=== PATIENT | male | born 1945 | race Caucasian/White ===

== ENCOUNTER 2016-07-10 09:21 | Emergency (ER) | payer OTHER, BC ==
[~2016-07-10] VITALS: Ht 165.1 cm; Wt 65.7 kg
[~2016-07-10 09:21] MED LIST: ADVAIR 250/501 DISK IH; ASPIR 8181 M1 PO; ASPIRIN81 M1 PO; BENICAR HCT 201 EACH PO; CIPRO250 MG PO; CIPROFLOXACIN250 MG PO; Ceftin PO; DuoNeb IH; FLEXERIL10 MG PO; IPRATROPIUM BRO30 ML BOTH NARES; Levaquin PO; METOPROLOL SUCC25 MG PO; MUCINEX600 MG PO; NEXIUM40 MG PO; OLMESARTAN MEDO20 MG PO; PEN-VEE K,VEET500 MG PO; PREDNISONE50 MG PO; SUCRALFATE1 GM PO; VENTOLIN HFA18 GM IH; XANAX0.5 MG PO; ZANTAC300 MG PO; ZITHROMAX250 MG PO; ZOLPIDEM TARTRA10 MG PO; predniSONE PO
[2016-07-10 10:16] LABS: HEMATOCRIT 45.4 % (38.0-50.0); MCH 26.5 PG (29.0-34.0); MCHC 31.9 G/DL (30.0-36.0); MEAN PLAT.VOLUME 9.4 uM^3 (9.0-12.4); PLATELET COUNT 198 K/uL (156-360); RBC DIS.WIDTH-CV 14.5 % (11.8-14.6); RBC DIS.WIDTH-SD 43.8 % (39-53); RED BLOOD COUNT 5.47 M/uL (4.00-5.50); WHITE BLOOD COUNT 6.6 K/uL (4.1-10.2)
[2016-07-10 10:30] LABS: CHLORIDE 103 mEq/L (99-109); SODIUM 140 mEq/L (136-147)
[2016-07-10 10:32] LABS: GLUCOSE 100 mg/dL (70-99)
[2016-07-10 10:34] LABS: ANION GAP 10 MEQ/L (2-14); TOTAL BILIRUBIN 0.9 mg/dL (0.0-1.0)
[2016-07-10 10:36] LABS: ALKALINE PHOSPHATASE 48 IU/L (3-129); GFR ESTIMATE (CALCULATED) 49 mL/min/
[2016-07-10 10:37] LABS: UREA NITROGEN (BUN) 13 mg/dL (9-23)
[2016-07-10 10:40] LABS: LIPASE 36 U/L (1.0-51.0)
[2016-07-10 10:42] LABS: TROP-I INTERPRETATION NEGATIVE; TROPONIN-I < 0.01 ng/mL (0.0-0.30)
[2016-07-10] MEDS ORDERED: FLOMAX0.4 MG PO (12:59)
[2016-07-10] MEDS ORDERED: CIPRO500 MG PO (13:02)
[2016-07-10 13:20] VITALS: BP 149/71
== END 2016-07-10 13:24 | disposition home or self-care (01) ==
LOC: EME 09:21
PROVIDERS: Nurse Practitioner Family
DX: N20.0 Calculus of kidney (principal); K59.00 Constipation, unspecified; J44.9 Chronic obstructive pulmonary disease, unspecified; I10 Essential (primary) hypertension; K21.9 Gastro-esophageal reflux disease without esophagitis
CPT/HCPCS: 74000; 74176; 80053; 81003; 83690; 84484; 85027; 93005; 99281; 99284; J7030

== ENCOUNTER 2017-05-18 13:49 | Inpatient (IN) | payer OTHER, BC ==
[~2017-05-18] VITALS: Ht 170.2 cm; Wt 75.4 kg
[~2017-05-18 13:49] MED LIST changes: +CIPRO500 MG PO; +DUONEB 2.5-0.5 M3 ML AEROSOL; +FLOMAX0.4 MG PO
[2017-05-18 14:42] LABS: BASOPHIL (%) 0.9 % (0-1); BASOPHIL COUNT 0.1 K/uL (0-0.1); EOSINOPHIL (%) 5.4 % (0-5); EOSINOPHIL COUNT 0.4 K/uL (0-0.3); HEMATOCRIT 43.8 % (38.0-50.0); HEMOGLOBIN 14.4 G/DL (12.5-16.6); IMMATURE GRANULOCYTE (%) 2.4 % (0.0-0.7); LYMPHOCYTE (%) 21.6 % (15-42); LYMPHOCYTE COUNT 1.5 K/uL (1.0-2.8); MCH 28.2 PG (29.0-34.0); MCHC 32.9 G/DL (30.0-36.0); MCV 85.7 FL (86-99); MONOCYTE (%) 9.7 % (3-12); MONOCYTE COUNT 0.7 K/uL (0-0.8); NEUTROPHIL COUNT 4.2 K/uL (1.8-6.4); PLATELET COUNT 161 K/uL (156-360); RBC DIS.WIDTH-CV 13.9 % (11.8-14.6); RBC DIS.WIDTH-SD 43.4 % (39-53); RED BLOOD COUNT 5.11 M/uL (4.00-5.50)
[2017-05-18 14:52] LABS: CHLORIDE 103 mEq/L (99-109); POTASSIUM 4.3 mEq/L (3.7-5.4); SODIUM 140 mEq/L (136-147)
[2017-05-18 14:54] LABS: GLUCOSE 116 mg/dL (70-99)
[2017-05-18 14:58] LABS: CREATININE 1.4 mg/dL (0.6-1.3); GFR ESTIMATE (CALCULATED) 53 mL/min/ (58.99-99999)
[2017-05-18 14:59] LABS: PTT 31.7 SEC (25-37); UREA NITROGEN (BUN) 15 mg/dL (9-23)
[2017-05-18 15:04] LABS: TROP-I INTERPRETATION NEGATIVE; TROPONIN-I < 0.01 ng/mL (0.0-0.30)
[2017-05-18] MEDS ORDERED: AMITRIPTYLINE H25 MG PO (17:49)
[2017-05-18] MEDS ORDERED: MONTELUKAST SOD10 MG PO (17:49)
[2017-05-18 18:23] LABS: APPEARANCE CLEAR ((CLEAR)); BILIRUBIN NEGATIVE; BLOOD SMALL; COLOR STRAW ((YELLOW)); GLUCOSE (STRIP) NEGATIVE; KETONES NEGATIVE; LEUKOCYTES TRACE; NITRITE NEGATIVE; PROTEIN (STRIP) NEGATIVE; UROBILINOGEN 0.2 MG/DL (0.2-1.0)
[2017-05-18 18:51] LABS: BACTERIA NONE SEEN /HPF; EPITHELIAL CELLS RARE /HPF; MUCUS TRACE /LPF; RED BLOOD CELLS 0-5 /HPF (0-5); UCUL ADDED? NO; WHITE BLOOD CELLS 0-5 /HPF (0-5)
[2017-05-18 20:10] VITALS: BP 143/83
[2017-05-18 23:05] VITALS: BP 126/72
[2017-05-19 03:56] VITALS: BP 130/74
[2017-05-19 07:29] VITALS: BP 148/88
[2017-05-19 07:29] LABS: BASOPHIL (%) 0.3 % (0-1); EOSINOPHIL (%) 0 % (0-5); HEMOGLOBIN 13.8 G/DL (12.5-16.6); LYMPHOCYTE (%) 13.7 % (15-42); LYMPHOCYTE COUNT 1.2 K/uL (1.0-2.8); MCH 27.7 PG (29.0-34.0); MCHC 32.1 G/DL (30.0-36.0); MCV 86.2 FL (86-99); MONOCYTE (%) 1.6 % (3-12); MONOCYTE COUNT 0.1 K/uL (0-0.8); NEUTROPHIL (%) 82.4 % (45-76); NEUTROPHIL COUNT 7.3 K/uL (1.8-6.4); PLATELET COUNT 146 K/uL (156-360); RBC DIS.WIDTH-CV 13.8 % (11.8-14.6); RBC DIS.WIDTH-SD 42.9 % (39-53); RED BLOOD COUNT 4.99 M/uL (4.00-5.50); WHITE BLOOD COUNT 8.9 K/uL (4.1-10.2)
[2017-05-19 07:50] LABS: CHLORIDE 105 MEQ/L (99-109); CREATININE 1.2 MG/DL (0.6-1.3); GFR ESTIMATE (CALCULATED) > 59 mL/min/ (58.99-99999); GLUCOSE 135 mg/dL (70-99); POTASSIUM 4.4 MEQ/L (3.7-5.4); SODIUM 139 MEQ/L (136-147); UREA NITROGEN (BUN) 17 mg/dL (9-23)
[2017-05-19 11:20] VITALS: BP 137/80
[2017-05-19 16:08] VITALS: BP 114/61
[2017-05-19 19:49] VITALS: BP 152/82
[2017-05-20] VITALS (15 sets, daily range): BP systolic 115–183; BP diastolic 74–129
[2017-05-20 14:20] LABS: BASE EXCESS -1.3 mEq/L (-3 to +3); BICARBONATE 23.7 mEq/L (22-26); CARBOXY HGB 2.4 % (0-5); COMMENTS - BLOOD GASES A+C+; DEVICE NC; METHEMOGLOBIN 1.8 % (0-1.5); O2 FLOW 2 L/MIN; PCO2 40 mm Hg (35-45); PO2 76 mm Hg (80-100); SITE LR; TOTAL RESP RATE 16 resp/min; pH 7.38 (7.35-7.45)
[2017-05-20 17:34] LABS: CHLORIDE 111 MEQ/L (99-109); CREATININE 1.2 MG/DL (0.6-1.3); GFR ESTIMATE (CALCULATED) > 59 mL/min/ (58.99-99999); GLUCOSE 111 mg/dL (70-99); POTASSIUM 4.5 MEQ/L (3.7-5.4); SODIUM 142 MEQ/L (136-147)
[2017-05-20 17:38] LABS: TROP-I INTERPRETATION NEGATIVE; TROPONIN-I 0.03 ng/mL (0.0-0.30)
[2017-05-20 17:40] LABS: UREA NITROGEN (BUN) 28 mg/dL (9-23)
[2017-05-20 17:56] LABS: BASOPHIL (%) 0.2 % (0-1); EOSINOPHIL (%) 0 % (0-5); HEMATOCRIT 39.8 % (38.0-50.0); HEMOGLOBIN 12.2 G/DL (12.5-16.6); IMMATURE GRANULOCYTE (%) 2.1 % (0.0-0.7); LYMPHOCYTE (%) 10.9 % (15-42); LYMPHOCYTE COUNT 0.9 K/uL (1.0-2.8); MCH 26.9 PG (29.0-34.0); MCHC 30.7 G/DL (30.0-36.0); MCV 87.7 FL (86-99); MONOCYTE (%) 4.4 % (3-12); MONOCYTE COUNT 0.4 K/uL (0-0.8); NEUTROPHIL (%) 82.4 % (45-76); NEUTROPHIL COUNT 6.8 K/uL (1.8-6.4); RBC DIS.WIDTH-SD 45.2 % (39-53); RED BLOOD COUNT 4.54 M/uL (4.00-5.50); WHITE BLOOD COUNT 8.3 K/uL (4.1-10.2)
[2017-05-20 17:57] LABS: IMM.PLATELET FRACTION 0.2 (1-7); PLAT.SUFFICIENCY VERY DECREASED
[2017-05-20 18:01] LABS: PLATELET COUNT ND K/uL (156-360)
[2017-05-20 18:34] LABS: BICARBONATE 21.8 mEq/L (22-26); CARBOXY HGB 1.6 % (0-5); METHEMOGLOBIN 1.8 % (0-1.5); pH 7.47 (7.35-7.45)
[2017-05-20 18:35] LABS: COMMENTS - BLOOD GASES A+C+; DEVICE PB VENT; FI02 70 %; MECHANICAL RATE 20 resp/min; MODE AC; PCO2 30 mm Hg (35-45); PEEP 8 CM/H20; PO2 225 mm Hg (80-100); SITE RR; TIDAL VOLUME 450 ML; TOTAL RESP RATE 20 resp/min
[2017-05-20 18:47] LABS: PTT 27.7 SEC (25-37)
[2017-05-20 18:55] LABS: HIGH-SENS C-REACTIVE PROTEIN 0.16 MG/DL (0.02-0.20)
[2017-05-20 23:05] LABS: APPEARANCE CLEAR ((CLEAR)); BILIRUBIN NEGATIVE; BLOOD SMALL; COLOR YELLOW ((YELLOW)); GLUCOSE (STRIP) NEGATIVE; KETONES NEGATIVE; LEUKOCYTES NEGATIVE; NITRITE NEGATIVE; PROTEIN (STRIP) NEGATIVE; UROBILINOGEN 0.2 MG/DL (0.2-1.0)
[2017-05-20 23:13] LABS: BACTERIA NONE SEEN /HPF; EPITHELIAL CELLS RARE /HPF; MUCUS TRACE /LPF; RED BLOOD CELLS 0-5 /HPF (0-5); WHITE BLOOD CELLS 0-5 /HPF (0-5)
[2017-05-21] VITALS (25 sets, daily range): BP systolic 111–164; BP diastolic 67–102
[2017-05-21 14:29] LABS: BASE EXCESS -0.7 mEq/L (-3 to +3); BICARBONATE 23.2 mEq/L (22-26); CARBOXY HGB 1.7 % (0-5); METHEMOGLOBIN 1.4 % (0-1.5); pH 7.43 (7.35-7.45)
[2017-05-21 14:30] LABS: COMMENTS - BLOOD GASES A+C+; DEVICE 840 PB; FI02 30 %; MODE SPONT; PCO2 35 mm Hg (35-45); PEEP 5 CM/H20; PO2 75 mm Hg (80-100); PRES. SUPPORT 10 CM/H2O; SITE RR; TOTAL RESP RATE 22 resp/min
[2017-05-22] VITALS (12 sets, daily range): BP systolic 125–159; BP diastolic 81–92
[2017-05-23] VITALS (7 sets, daily range): BP systolic 127–157; BP diastolic 70–92
[2017-05-24 04:05] VITALS: BP 142/88
[2017-05-24 07:02] LABS: HEMATOCRIT 40.7 % (38.0-50.0); HEMOGLOBIN 13.2 G/DL (12.5-16.6); MCH 27.4 PG (29.0-34.0); MCHC 32.4 G/DL (30.0-36.0); MCV 84.6 FL (86-99); PLATELET COUNT 202 K/uL (156-360); RBC DIS.WIDTH-CV 13.9 % (11.8-14.6); RBC DIS.WIDTH-SD 42.9 % (39-53); RED BLOOD COUNT 4.81 M/uL (4.00-5.50); WHITE BLOOD COUNT 12.7 K/uL (4.1-10.2)
[2017-05-24 07:19] VITALS: BP 129/78
[2017-05-24 07:36] LABS: CHLORIDE 100 MEQ/L (99-109); CREATININE 1.1 MG/DL (0.6-1.3); GFR ESTIMATE (CALCULATED) > 59 mL/min/ (58.99-99999); GLUCOSE 86 mg/dL (70-99); POTASSIUM 4.3 MEQ/L (3.7-5.4); SODIUM 136 MEQ/L (136-147); UREA NITROGEN (BUN) 33 mg/dL (9-23)
[2017-05-24 11:10] VITALS: BP 155/100
[2017-05-24 14:27] VITALS: BP 140/92
[2017-05-24 16:17] VITALS: BP 133/84
[2017-05-24 19:52] VITALS: BP 146/80
[2017-05-25 00:05] VITALS: BP 163/84
[2017-05-25 03:29] VITALS: BP 160/77
[2017-05-25 06:29] LABS: HEMATOCRIT 39.4 % (38.0-50.0); HEMOGLOBIN 12.9 G/DL (12.5-16.6); MCH 27.5 PG (29.0-34.0); MCHC 32.7 G/DL (30.0-36.0); PLATELET COUNT 214 K/uL (156-360); RBC DIS.WIDTH-CV 13.9 % (11.8-14.6); RBC DIS.WIDTH-SD 42.4 % (39-53); RED BLOOD COUNT 4.69 M/uL (4.00-5.50); WHITE BLOOD COUNT 15.1 K/uL (4.1-10.2)
[2017-05-25 06:49] LABS: CHLORIDE 100 MEQ/L (99-109); GFR ESTIMATE (CALCULATED) > 59 mL/min/ (58.99-99999); GLUCOSE 98 mg/dL (70-99); POTASSIUM 4.7 MEQ/L (3.7-5.4); SODIUM 136 MEQ/L (136-147); UREA NITROGEN (BUN) 38 mg/dL (9-23)
[2017-05-25 08:13] VITALS: BP 136/86
[2017-05-25 11:50] VITALS: BP 140/77
[2017-05-25 15:24] VITALS: BP 137/84
[2017-05-25 19:33] VITALS: BP 133/81
[2017-05-26 00:13] VITALS: BP 149/81
[2017-05-26 03:53] VITALS: BP 143/68
[2017-05-26 06:53] LABS: HEMATOCRIT 39.3 % (38.0-50.0); MCH 27.8 PG (29.0-34.0); MCHC 33.1 G/DL (30.0-36.0); NRBC (%) 0.1 /100 WBC (0-0); PLATELET COUNT 231 K/uL (156-360); RBC DIS.WIDTH-CV 13.8 % (11.8-14.6); RBC DIS.WIDTH-SD 42.3 % (39-53); RED BLOOD COUNT 4.68 M/uL (4.00-5.50)
[2017-05-26 07:35] VITALS: BP 115/86
[2017-05-26 11:30] VITALS: BP 134/88
[2017-05-26 15:12] VITALS: BP 157/85
[2017-05-26 19:45] VITALS: BP 142/78
[2017-05-27 00:05] VITALS: BP 159/89
[2017-05-27 06:16] LABS: HEMATOCRIT 40.3 % (38.0-50.0); HEMOGLOBIN 12.9 G/DL (12.5-16.6); MCH 26.9 PG (29.0-34.0); MCV 84.1 FL (86-99); PLATELET COUNT 238 K/uL (156-360); RBC DIS.WIDTH-CV 13.9 % (11.8-14.6); RBC DIS.WIDTH-SD 42.7 % (39-53); RED BLOOD COUNT 4.79 M/uL (4.00-5.50); WHITE BLOOD COUNT 19.1 K/uL (4.1-10.2)
[2017-05-27 08:03] VITALS: BP 132/76
[2017-05-27] MEDS ORDERED: CARDIZEM30 MG PO (11:03)
[2017-05-27] MEDS ORDERED: LEVOFLOXACIN500 MG PO (11:03)
[2017-05-27] MEDS ORDERED: PREDNISONE20 MG PO (11:03)
[2017-05-27 15:41] VITALS: BP 133/83
== END 2017-05-27 17:32 | disposition home health service (06) | DRG 871 ==
LOC: EME 13:49 → 4WEST 16:58 → 2EAST 16:58 → EDOF 16:58 → ENRESERV 17:04 → 2EAST 20:01 → ENRESERV 05-20 14:10 → 2EAST 05-20 16:10 → ENRESERV 05-20 16:15 → CANRESERV 05-20 16:15 → 4WEST 05-20 16:18 → ENRESERV 05-20 16:20 → 4WEST 05-22 12:09 → ENRESERV 05-22 12:12 → 4WEST 05-22 14:01 → 2EAST 05-22 15:27 → ENPENDDIS 05-27 16:00 → 2EAST 05-27 17:32
PROVIDERS: Emergency Medicine; Family Medicine; Hospitalist; Internal Medicine; Internal Medicine Critical Care Medicine
PROC: 5A09357 Assistance with Respiratory Ventilation, Less than 24 Consecutive Hours, Continuous Positive Airway Pressure (ICD-10-PCS; 2017-05-18)
PROC: 0BH17EZ Insertion of Endotracheal Airway into Trachea, Via Natural or Artificial Opening (ICD-10-PCS; principal; 2017-05-20)
PROC: 02HV33Z Insertion of Infusion Device into Superior Vena Cava, Percutaneous Approach (ICD-10-PCS; principal; 2017-05-20)
PROC: 5A1945Z Respiratory Ventilation, 24-96 Consecutive Hours (ICD-10-PCS; principal; 2017-05-20)
DX: A41.9 Sepsis, unspecified organism (principal); J18.9 Pneumonia, unspecified organism; J96.21 Acute and chronic respiratory failure with hypoxia; J44.0 Chronic obstructive pulmonary disease with (acute) lower respiratory infection; I16.0 Hypertensive urgency; I11.0 Hypertensive heart disease with heart failure; I50.31 Acute diastolic (congestive) heart failure; J44.1 Chronic obstructive pulmonary disease with (acute) exacerbation; J20.9 Acute bronchitis, unspecified; J45.901 Unspecified asthma with (acute) exacerbation; Z99.81 Dependence on supplemental oxygen; G47.33 Obstructive sleep apnea (adult) (pediatric); F41.1 Generalized anxiety disorder; K21.9 Gastro-esophageal reflux disease without esophagitis; R00.0 Tachycardia, unspecified; M41.9 Scoliosis, unspecified; Z79.82 Long term (current) use of aspirin; R53.1 Weakness; B91 Sequelae of poliomyelitis
CPT/HCPCS: 36600; 71045; 71046; 80048; 81003; 82803; 83605; 83735; 84145 90; 84484; 85025; 85027; 85049; 85379; 85610; 85730; 86141; 87040; 87070; 87205; 87449; 87502; 87641; 93005; 93306; 94002; 94003; 94640; 94640 76; 94644; 94660; 94667; 94760; 94799; 99202; 99281; 99285; C1751; J0360; J0456; J0696; J1100; J1650; J1940; J1956; J2704; J2930; J2997; J7030; J7042; J7512